=== PATIENT | male | born 2005 | race Hispanic/Latino ===

== ENCOUNTER 2024-12-21 22:09 | Emergency (ER) | payer SELFPAY ==
[2024-12-21] MEDS ORDERED: MORPHINE 4 MG/ML SYR ONE (22:28)
[2024-12-21] MEDS ORDERED: ONDANSETRON 4 MG (ODT) TAB ONE (22:28)
[2024-12-22 00:01] LABS: Specific Gravity 1.016 (1.005-1.030); Sqamous Epithelial None Seen /HPF (None Seen); Urine Bacteria None Seen /HPF (<20); Urine Bilirubin NEGATIVE (Negative); Urine Blood Negative (Negative); Urine Clarity Extremely Turbid (Clear); Urine Color Light-Yellow (Yellow); Urine Glucose NEGATIVE (Negative); Urine Ketones NEGATIVE (Negative); Urine Micro Reflex YN NO BILL MICROSCOPIC; Urine Nitrite NEGATIVE (Negative); Urine Protein NEGATIVE (Negative); Urine RBC None Seen /HPF (None Seen); Urine Urobilinogen Normal (Normal); Urine WBC None Seen /HPF (<5)
--- NOTE | 2024-12-22 00:05 | ER ---
Nurse's Notes [facility] Name: Hiram Pompa Age: 19 yrs Sex: Male : 2005 Arrival Date: 12/21/2024 Time: 22:09 Bed 19 Private MD: Diagnosis: Right testicular pain-secondary to established testicular cancer Presentation: 12/21 22:10 Chief complaint: EMS states: pt had a testicular pain started 3 days ago \T\ its getting rg5 worse. Pt had a history of testicular CA. 22:10 Coronavirus screen: Client denies travel out of the [place] in the last 14 days. Ebola rg5 Screen: Patient negative for fever greater than or equal to 101.5 degrees Fahrenheit, and additional compatible Ebola Virus Disease symptoms. Initial Sepsis Screen: Does the patient meet any 2 criteria? No. Patient's initial sepsis screen is negative. Does the patient have a suspected source of infection? No. Patient's initial sepsis screen is negative. Risk Assessment: Do you want to hurt yourself or someone else? Patient reports no desire to harm self or others. Onset of symptoms was December 21, 2024. 22:10 Method Of Arrival: EMS: [facility] rg5 22:10 Acuity: RADHA 3 rg5 Triage Assessment: 22:10 General: Appears in no apparent distress. uncomfortable, Behavior is calm, cooperative, rg5 appropriate for age. Pain: Complains of pain in groin Pain currently is 8 out of 10 on a pain scale. Quality of pain is described as aching, Pain began gradually, 2-3 days ago. EENT: No deficits noted. Neuro: Level of Consciousness is awake, alert, obeys commands, Oriented to person, place, time, situation. Cardiovascular: Denies chest pain. Respiratory: Airway is patent Trachea midline Respiratory effort is even, unlabored, Respiratory pattern is regular, symmetrical. GI: Abdomen is flat, non-distended, Abd is soft and non tender. : Reports Scrotal pain: sudden onset. Derm: Skin is intact, Skin is dry, Skin is normal, Skin temperature is warm. Musculoskeletal: Circulation, motion, and sensation intact. Range of motion: intact in all extremities. Historical: - Allergies: 22:10 No Known Allergies; rg5 - PMHx: 12/22 00:01 Testicular cancer; sb4 - PSHx: 12/21 22:10 Appendectomy; rg5 - Immunization history:: Adult Immunizations unknown. - Infectious Disease History:: Denies. - Social history:: Smoking status: Patient reports the use of cigarette tobacco products, smokes one-half pack cigarettes per day. Screenin:10 [facility] ED Fall Risk Assessment (Adult) History of falling in the last 3 months, rg5 including since admission No falls in past 3 months (0 pts) Confusion or Disorientation No (0 pts) Intoxicated or Sedated No (0 pts) Impaired Gait No (0 pts) Mobility Assist Device Used No (0 pt) Altered Elimination No (0 pt) Score/Fall Risk Level 0 - 2 = Low Risk Oriented to surroundings, Maintained a safe environment. 22:10 Abuse screen: Denies threats or abuse. Nutritional screening: No deficits noted. rg5 22:10 Tuberculosis screening: No symptoms or risk factors identified. rg5 Assessment: 23:00 Reassessment: No changes from previously documented assessment. Patient and/or family rg5 updated on plan of care and expected duration. Pain level reassessed. Patient is alert, oriented x 3, equal unlabored respirations, skin warm/dry/pink. 12/22 00:00 Reassessment: Patient and/or family updated on plan of care and expected duration. Pain rg5 level reassessed. Patient is alert, oriented x 3, equal unlabored respirations, skin warm/dry/pink. Patient states feeling better. Vital Signs: 12/21 22:10 BP 125 / 69; Pulse 65; Resp 19; Temp 98; Pulse Ox 100% on R/A; Weight 65.23 kg; Height rg5 5 ft. 2 in. ; Pain 8/10; 23:01 BP 122 / 66; Pulse 68; Resp 17; Pulse Ox 98% on R/A; Pain 5/10; rg5 12/22 00:15 BP 116 / 71; Pulse 67; Resp 17; Pulse Ox 99% on R/A; rg5 12/21 22:10 Body Mass Index 26.30 (65.23 kg, 157.48 cm) rg5 12/21 22:10 Pain Scale: Adult rg5 23:01 Pain Scale: Adult rg5 ED Course: 12/21 22:09 Patient arrived in ED. sb4 22:10 Ceci Larsen PA-C [facility]. sb4 22:10 Mariusz Menjivar MD is Attending Physician. sb4 22:10 Arm band placed on right wrist. rg5 22:10 Patient has correct armband on for positive identification. Placed in gown. Bed in low rg5 position. Call light in reach. Side rails up X 1. Door closed. Noise minimized. Warm blanket given. 22:10 No provider procedures requiring assistance completed. rg5 22:15 Markie Covarrubias, RN is Primary Nurse. rg5 22:18 Triage completed. rg5 22:44 US Scrotum Testicles In Process Unspecified. EDMS 12/22 00:19 Provided Education on: post er care. rg5 00:19 Patient did not have IV access during this emergency room visit. rg5 Administered Medications: 12/21 22:42 Drug: morphine IM 4 mg IM once Route: IM; Site: right deltoid; rg5 12/22 00:16 Follow up: Response: No adverse reaction; Pain is decreased rg5 12/21 22:42 Drug: Ondansetron PO 4 mg PO once Route: PO; rg5 12/22 00:16 Follow up: Response: No adverse reaction rg5 Medication: 12/21 22:10 VIS not applicable for this client. rg5 Outcome: 12/22 00:04 Discharge ordered by . sb4 00:18 Discharged to home ambulatory, rg5 00:18 Condition: stable 00:18 Discharge instructions given to patient, family, Instructed on discharge instructions, follow up and referral plans. Demonstrated understanding of instructions, follow-up care, medications, Prescriptions given X 2, 00:19 Patient left the ED. rg5 Signatures: Dispatcher [employer] [facility] Ceci Larsen PA-C PA-C sb4 Markie Covarrubias, RN RN rg5
--- NOTE | 2024-12-22 00:05 | EDPHYS ---
Physician Documentation [facility] Name: Hiram Pompa Age: 19 yrs Sex: Male : 2005 Arrival Date: 12/21/2024 Time: 22:09 Bed 19 Private MD: ED Physician Mariusz Menjivar HPI: 12/21 22:37 This 19 yrs old Male presents to ER via EMS with complaints of Testicular Pain. sb4 22:37 Patient reports worsening right sided testicular pain over the past 3 days. Does have a sb4 history of testicular cancer in the right testicle. Has been receiving chemotherapy intermittently over the past few years. States that he was supposed to go for chemotherapy this past week but is very anxious and scared about it and did not go. Historical: - Allergies: 22:10 No Known Allergies; rg5 - PMHx: 12/22 00:01 Testicular cancer; sb4 - PSHx: 12/21 22:10 Appendectomy; rg5 - Immunization history:: Adult Immunizations unknown. - Infectious Disease History:: Denies. - Social history:: Smoking status: Patient reports the use of cigarette tobacco products, smokes one-half pack cigarettes per day. ROS: 22:37 Constitutional: Negative for fever, chills, and weight loss, sb4 22:37 : Positive for testicular pain 22:37 All other systems are negative, Exam: 22:37 Head/Face: Normocephalic, atraumatic. Eyes: Extra-ocular motions intact. Periorbital sb4 areas with no swelling, redness, or edema. ENT: Mucous membranes moist. Respiratory: No increased work of breathing, no retractions or nasal flaring. Skin: Warm, dry with normal turgor. Normal color with no rashes, no lesions, and no evidence of cellulitis. 22:37 Constitutional: The patient appears alert, awake, anxious, 22:37 : Male external genitalia: erythema, is absent, swelling: is not appreciated, tenderness, of the left testicle and right testicle is noted, Vital Signs: 22:10 BP 125 / 69; Pulse 65; Resp 19; Temp 98; Pulse Ox 100% on R/A; Weight 65.23 kg; Height rg5 5 ft. 2 in. ; Pain 8/10; 23:01 BP 122 / 66; Pulse 68; Resp 17; Pulse Ox 98% on R/A; Pain 5/10; rg5 12/22 00:15 BP 116 / 71; Pulse 67; Resp 17; Pulse Ox 99% on R/A; rg5 12/21 22:10 Body Mass Index 26.30 (65.23 kg, 157.48 cm) rg5 12/21 22:10 Pain Scale: Adult rg5 23:01 Pain Scale: Adult [facility] MDM: 12/21 22:10 Medical Screening Exam initiated sb4 12/22 00:03 Data reviewed: vital signs, nurses notes, EMS record, lab test result(s), radiologic sb4 studies, and as a result, I will discharge patient. Counseling: I had a detailed discussion with the patient and/or guardian regarding the historical points, exam findings, and any diagnostic results supporting the discharge/admit diagnosis, lab results, radiology results, the need for outpatient follow up, oncology, to return to the emergency department if symptoms worsen or persist or if there are any questions or concerns that arise at home. 12/21 22:16 Order name: LEON; Complete Time: 00:02 sb4 12/21 22:15 Order name: Scrotum Testicles sb4 Administered Medications: 12/21 22:42 Drug: morphine IM 4 mg IM once Route: IM; Site: right deltoid; 5 12/22 00:16 Follow up: Response: No adverse reaction; Pain is decreased rg5 12/21 22:42 Drug: Ondansetron PO 4 mg PO once Route: PO; 5 12/22 00:16 Follow up: Response: No adverse reaction [facility] Disposition: 01:18 Co-signature as Attending Physician, Mariusz Menjivar MD I agree with the assessment sp4 and plan of care. I reviewed the patient's care provided by the Advanced Practice Provider and agree with the diagnosis and treatment plan. Disposition Summary: 12/22/24 00:04 Discharge Ordered Notes: Location: Home sb4 Problem: new sb4 Symptoms: have improved sb4 Condition: Stable sb4 Diagnosis - Right testicular pain - secondary to established testicular cancer sb4 Followup: sb4 - With: Private Physician - When: 1 week - Reason: Recheck today's complaints, Re-evaluation by your physician Discharge Instructions: - Discharge Summary Sheet sb4 - Testicular Cancer sb4 Forms: - Prescription Opioid Use sb4 - Patient Portal Instructions sb4 - Leadership Thank You Letter sb4 Prescriptions: - Ibuprofen 800 mg Oral Tablet - take 1 tablet ORAL route every 8 hours As needed take with food; 30 tablet; sb4 Refills: 0, Product Selection Permitted - Tramadol 50 mg Oral Tablet - take 1 tablet ORAL route every 8 hours as needed; 12 tablet; Refills: 0, sb4 Product Selection Permitted Signatures: Dispatcher [employer] EDCeci Alarcon PA-C PA-C sb4 Mariusz Menjivar MD MD sp4 Markie Covarrubias RN RN rg5
--- NOTE | 2024-12-22 09:05 | RAD REPORT ---
EXAM: US Scrotum CLINICAL HISTORY: The patient is 19 years old and is Male; testicular pain TECHNIQUE: Real-time ultrasound of the scrotum with color Doppler and image documentation. COMPARISON: No relevant prior studies available. FINDINGS: RIGHT TESTICLE: Coarse calcifications are present within the right testicle. The right testicle i s otherwise homogeneous. The right testicle measures 3.7 x 1.8 x 2.5 cm. There is normal blood flow in the testicle, without evidence of testicular torsion. LEFT TESTICLE: 3.4 x 2.1 x 2.6 cm. No mass. There is normal blood flow in the testicle, without evidence of testicular torsion. EPIDIDYMIDES: Unremarkable. SCROTUM: Unremarkable. IMPRESSION: 1. Coarse calcifications within the right testicle which may be secondary to treated testicular car cinoma (patient has a history of known testicular cancer). Correlation with prior imaging and history is recommended. 2. No evidence of torsion. Electronically signed by: Sheryl Nath MD 12/21/2024 11:34 PM CDT Due to temporary technical issues with the [employer] reporting system, reports are being brody d by the in-house radiologist without review as a courtesy to ensure prompt reporting the interpreting radiologist is fully responsible for the content of the report. Transcribed Date/Time: 12/22/2024 9:05 AM
[2024-12-22 23:28] VITALS: TEMP 98
[2024-12-22 23:30] VITALS: BP 116/71; O2SAT 99
== END 2024-12-22 00:19 | disposition home or self-care (01) ==
LOC: ER 22:09 → EDBD 22:09 → ER 12-22 00:19
DX: C62.91 Malignant neoplasm of right testis, unspecified whether descended or undescended (principal)
CPT/HCPCS: 76870; 81001; 96372; 99284; Q0162